=== PATIENT | male | born 1960 | race Caucasian/White ===

== ENCOUNTER 2019-11-25 10:59 | Emergency (ER) | payer BC, OTHER ==
[~2019-11-25] VITALS: Ht 170.2 cm; Wt 81.7 kg
[2019-11-25 11:20] LABS: ABSOLUTE NEUTROPHILS 3.5 thou/uL (1.4-8.2); EOSINOPHILS 0.5 % (0.0-3.0); HEMATOCRIT 42.1 % (42.0-52.0); HEMOGLOBIN 13.9 gm/dL (14.0-18.0); LYMPHOCYTES 31.6 % (24.0-44.0); MCH 29.6 pg (26.0-34.0); MCV 89.7 fL (80.0-100.0); PLATELET COUNT 299 thou/uL (150-400); POLYS 55.9 % (36.0-66.0); RDW 13.3 % (10.5-14.5); WBC 6.3 thou/uL (4.0-11.0)
[2019-11-25 11:34] LABS: POTASSIUM 3.8 mmol/L (3.5-5.1)
[2019-11-25 11:36] LABS: ALBUMIN 3.6 g/dL (3.4-5.0); TOTAL BILIRUBIN 0.6 mg/dL (<0.1-1.0); TOTAL PROTEIN 7.3 g/dL (6.4-8.2)
[2019-11-25 12:30] LABS: URINE BILIRUBIN NEGATIVE (Negative); URINE BLOOD 3+ (Negative); URINE CLARITY CLEAR; URINE COLOR YELLOW; URINE GLUCOSE-RANDOM* NEGATIVE (Negative); URINE KETONES NEGATIVE (Negative); URINE LEUKOCYTES-REFLEX NEGATIVE (Negative); URINE NITRITE-REFLEX NEGATIVE (Negative); URINE PROTEIN (DIPSTICK) NEGATIVE (Negative); URINE UROBILINOGEN 0.2 E.U./dl (0.2-1.0)
[2019-11-25 12:44] LABS: CASTS None Seen /LPF (None Seen); CRYSTALS None Seen /LPF (None Seen); SQUAMOUS 0-3 Few /LPF (0-3)
[2019-11-25 12:45] LABS: BACTERIA-REFLEX 1-9 Few /HPF (None Seen); URINE WBC-REFLEX 0-5 Rare /HPF (0-5); YEAST-REFLEX Present (None Seen)
[2019-11-25] MEDS ORDERED: PHENAZOPYRIDIN200 M2 PO (13:06)
[2019-11-25] MEDS ORDERED: NORCO 5-325 TA1 EAC1 PO (13:06)
[2019-11-25] MEDS ORDERED: BACTRIM DS TAB1 EACH PO (13:06)
[2019-11-25 14:10] VITALS: BP 158/101
== END 2019-11-25 13:35 | disposition home or self-care (01) ==
LOC: ER 10:59
PROVIDERS: Physician Assistant
DX: N39.0 Urinary tract infection, site not specified (principal); R31.9 Hematuria, unspecified; I10 Essential (primary) hypertension